=== PATIENT | female | born 1995 | race Caucasian/White ===

== ENCOUNTER 2016-04-15 16:10 | Emergency (ER) | payer BC ==
[~2016-04-15] VITALS: Ht 160 cm; Wt 74.3 kg
[2016-04-15 16:28] VITALS: TEMP 36.9; Ht 160 cm; Wt 74.3 kg
[2016-04-15] MEDS ORDERED: SODIUM CHLORIDE 0.9% 1000ML 1,000 ML IV ONE (18:15)
[2016-04-15 19:30] LABS: URINE APPEARANCE CLOUDY (CLEAR); URINE BILIRUBIN NEG (NEG); URINE COLOR YELLOW; URINE EPITHELIAL CELL AUTO >30 /lpf (0-5); URINE NITRITE NEG (NEG); URINE PH 5.5 (4.5-7.5); URINE SPECIFIC GRAVITY 1.027 (1.000-1.030); UROBILINOGEN NEG (NEG)
[2016-04-15 19:33] LABS: MANUAL MICROSCOPIC REQUIRED? NO; REVIEW REQ? YES; ZZUR CULT IF INDIC CLEAN CATCH YES
[2016-04-15 19:40] LABS: BASO % 0.4 %; BASO ABS # 0.03 K/uL (0-0.2); COMPLETE YES; EOS % 2.4 %; HEMATOCRIT 41.5 % (37-47); IG% 0.1 %; LYMPH % 36.7 %; MEAN CELL VOLUME 88.3 fL (80-100); MEAN CORPUSCULAR HEMOGLOBIN 32.8 pg (25-34); MEAN CORPUSCULAR HGB CONC 37.1 g/dl (32-36); MEAN PLATELET VOLUME 9.8 fL (7.4-10.4); MONO % 8.5 %; NEUT % 51.9 %; PLATELET COUNT 299 K/uL (130-400); WHITE BLOOD COUNT 7.63 K/uL (4.8-10.8)
[2016-04-15] MEDS ORDERED: MONT1TAB3 PO (19:44)
[2016-04-15] MEDS ORDERED: LEVA45AE INH (19:44)
[2016-04-15] MEDS ORDERED: CLON0.5T3 PO (19:44)
[2016-04-15] MEDS ORDERED: VENL150C PO (19:44)
[2016-04-15] MEDS ORDERED: MOME1AER5 INH (19:44)
[2016-04-15 19:51] LABS: URINE MUCUS PRESENT (NONE PRSENT)
[2016-04-15 19:55] LABS: CALCIUM 9.4 mg/dl (8.5-10.1); CREATININE 0.88 mg/dl (0.60-1.20); MAGNESIUM 2.4 mg/dl (1.8-2.4); POTASSIUM 3.8 mmol/L (3.5-5.1)
[2016-04-15 20:02] LABS: BENZODIAZEPINE, URINE NEG (NEG); COCAINE,URINE NEG (NEG); PHENCYCLIDINE, URINE NEG (NEG)
[2016-04-15 20:05] LABS: ALB/GLOB RATIO 1.2 (0.9-2); THYROID STIMULATING HORMONE 2.41 uIu/ml (0.300-4.500)
--- NOTE | 2016-04-15 20:32 | DIAGNOSTIC IMAGING REPORT ---
CT HEAD WITHOUT CONTRAST (CT) CLINICAL HISTORY: Dizziness and vertigo COMPARISON STUDY: No previous studies for comparison. TECHNIQUE: Axial CT of the brain is performed from the vertex to the skull base. IV contrast was not administered for this examination. CT DOSE: 537.48 mGy.cm FINDINGS: No intra or extra-axial mass lesions are visualized. There is no CT evidence of acute cortical infarction. There is no evidence of midline shift. There is no acute hemorrhage. No calvarial fractures are visualized. There is no evidence of pathologic ventricular dilatation. There is an incidental cavum septum pellucidum. There is no evidence of acute sinusitis IMPRESSION: Normal noncontrast head CT. Electronically signed by: Javier Garcia M.D. 04/15/2016 8:30 PM Dictated Date/Time: 04/15/2016 8:29 PM
[2016-04-15 21:51] VITALS: BP 150/83; PULSE 103; O2SAT 100
--- NOTE | 2016-04-16 16:37 | EMERGENCY ROOM VISIT NOTE ---
History First contact with patient: 17:52 Chief Complaint: DIZZY Stated Complaint: DIZZINESS,NAUSEA,SHAKINESS, S SENT HER Nursing Triage Summary: Patient ambulatory to triage, states "I have been really dizzy off and on for 3-4 weeks. It comes in periods of a couple days and then stops. I feel dizzy, nauseated and shaky. When I am dizzy I can't focus and I feel confused." History of Present Illness The patient is a 21 year old female who presents to the Emergency Room with complaints of intermittent dizziness off and on for the past 4 weeks. The patient states that at times she will feel like the room is spinning, and she becomes nauseated and shaky. The patient also feels like she has had near syncopal episodes. She does not report symptoms such as chest pain, chest tightness, palpitations, numbness, or flushing before or after these events. She does have medication for asthma and anxiety/depression which have been stable for several months. The patient went to [facility] today , and she was referred to the ER for further evaluation. The patient does have a history of recent travel, and she flew to [place] to see [employer] play in the [place]. She does not have extremity swelling or history of DVT/PE. Review of Systems More than 10 systems were reviewed and otherwise negative with the exception of history of present illness. Past Medical/Surgical History History of anxiety, depression, asthma Family History No pertinent family history Social History Smoking Status: Never Smoker Occupation Status: [employer] student Current/Historical Medications Scheduled Mometasone Furoate (Inhalation (Asmanex Hfa), 2 PUFF INH DAILY Montelukast Sodium (Singulair), 10 MG PO DAILY Venlafaxine Hcl (Effexor Xr), 1 CAP PO DAILY Miscellaneous Medications Clonazepam (Klonopin), 0.5 MG PO Levalbuterol Tartrate (Levalbuterol Tartrate Hfa), 2 PUFFS INH Allergies Coded Allergies: No Known Allergies (Unverified , 04/15/16) Physical Exam Vital Signs Date Time Temp Pulse Resp B/P Pulse Ox O2 Delivery O2 Flow Rate FiO2 04/15/16 21:51 103 18 150/83 100 04/15/16 20:20 100 20 140/87 98 Room Air 04/15/16 18:42 123 04/15/16 18:38 114 144/88 115 139/80 121 117/53 04/15/16 18:38 130 26 144/88 100 Room Air 04/15/16 16:28 36.9 81 18 117/82 99 Room Air Pain Rating (0-10): 3.0 Physical Exam VITALS: Vitals are noted on the nurse's note and reviewed by myself. Vital signs stable. GENERAL: Well-developed, well-nourished, white female, who is in no acute distress and resting comfortably. Patient is cooperative with the examination. HEAD: Normocephalic atraumatic. EARS: External ear normal. External auditory canals clear, tympanic membranes pearly olson without erythema or effusion bilaterally. EYES: Pupils equal round and reactive to light and accommodation. Conjunctivae without injection, sclerae without icterus. Extraocular movements intact. NOSE: Patent, turbinates without inflammation or discharge. MOUTH: Mucous membranes moist. Tonsils are not enlarged. Pharynx without erythema, blood, or exudate. Uvula midline. Airway patent. NECK: Supple without nuchal rigidity. No lymphadenopathy. No thyromegaly. Cervical spine is nontender. HEART: Regular rate and rhythm without murmurs gallops or rubs. LUNGS: Clear to auscultation bilaterally without wheezes, rales or rhonchi. No retractions or accessory muscle use. ABDOMEN: Positive normal bowel sounds x 4. Soft, nontender, without masses or organomegaly. No guarding or rebound tenderness. MUSCULOSKELETAL: No muscle atrophy, erythema, or edema noted. Full range of motion without joint tenderness in all extremities. No tenderness to palpation. Normal gait. Strength 5/5 throughout. NEURO: Patient was alert and oriented to person place and time. CN II through XII grossly intact. Medical Decision & Procedures ER Provider Diagnostic Interpretation: CT HEAD WITHOUT CONTRAST (CT) CLINICAL HISTORY: Dizziness and vertigo COMPARISON STUDY: No previous studies for comparison. TECHNIQUE: Axial CT of the brain is performed from the vertex to the skull base. IV contrast was not administered for this examination. CT DOSE: 537.48 mGy.cm FINDINGS: No intra or extra-axial mass lesions are visualized. There is no CT evidence of acute cortical infarction. There is no evidence of midline shift. There is no acute hemorrhage. No calvarial fractures are visualized. There is no evidence of pathologic ventricular dilatation. There is an incidental cavum septum pellucidum. There is no evidence of acute sinusitis IMPRESSION: Normal noncontrast head CT. Laboratory Results 04/15/16 19:21 Red Blood Count 4.70, Mean Corpuscular Volume 88.3, Mean Corpuscular Hemoglobin 32.8, Mean Corpuscular Hemoglobin Concent 37.1, Mean Platelet Volume 9.8, Neutrophils (%) (Auto) 51.9, Lymphocytes (%) (Auto) 36.7, Monocytes (%) (Auto) 8.5, Eosinophils (%) (Auto) 2.4, Basophils (%) (Auto) 0.4, Neutrophils # (Auto) 3.96, Lymphocytes # (Auto) 2.80, Monocytes # (Auto) 0.65, Eosinophils # (Auto) 0.18, Basophils # (Auto) 0.03 04/15/16 19:21 Test 04/15/16 19:00 04/15/16 19:21 04/15/16 19:22 Urine Color YELLOW Urine Appearance CLOUDY (CLEAR) Urine pH 5.5 (4.5-7.5) Urine Specific [place] 1.027 (1.000-1.030) Urine Protein NEG (NEG) Urine Glucose (UA) NEG (NEG) Urine Ketones TRACE (NEG) Urine Occult Blood 3+ (NEG) Urine Nitrite NEG (NEG) Urine Bilirubin NEG (NEG) Urine Urobilinogen NEG (NEG) Urine Leukocyte Esterase NEG (NEG) Urine WBC (Auto) 1-5 /hpf (0-5) Urine RBC (Auto) 10-30 /hpf (0-4) Urine Hyaline Casts (Auto) /lpf (0-5) Urine Epithelial Cells (Auto) >30 /lpf (0-5) Urine Bacteria (Auto) 2+ (NEG) Urine Mucus PRESENT (NONE PRSENT) Urine Yeast (Auto) (NONE PRSENT) Urine Test NEG (NEG) Urine Opiates Screen NEG (NEG) Urine Methadone, Qualitative NEG (NEG) Urine Barbiturates NEG (NEG) Urine Phencyclidine (PCP) Level NEG (NEG) Ur Amphetamine/Methamphetamine NEG (NEG) MDMA (Ecstasy) Screen NEG (NEG) Urine Benzodiazepines Screen NEG (NEG) Urine Cocaine Metabolite NEG (NEG) Urine Marijuana (THC) NEG (NEG) White Blood Count 7.63 K/uL (4.8-10.8) Red Blood Count 4.70 M/uL (4.2-5.4) Hemoglobin 15.4 g/dL (12.0-16.0) Hematocrit 41.5 % (37-47) Mean Corpuscular Volume 88.3 fL (80-100) Mean Corpuscular Hemoglobin 32.8 pg (25-34) Mean Corpuscular Hemoglobin Concent 37.1 g/dl (32-36) Platelet Count 299 K/uL (130-400) Mean Platelet Volume 9.8 fL (7.4-10.4) Neutrophils (%) (Auto) 51.9 % Lymphocytes (%) (Auto) 36.7 % Monocytes (%) (Auto) 8.5 % Eosinophils (%) (Auto) 2.4 % Basophils (%) (Auto) 0.4 % Neutrophils # (Auto) 3.96 K/uL (1.4-6.5) Lymphocytes # (Auto) 2.80 K/uL (1.2-3.4) Monocytes # (Auto) 0.65 K/uL (0.11-0.59) Eosinophils # (Auto) 0.18 K/uL (0-0.5) Basophils # (Auto) 0.03 K/uL (0-0.2) RDW Standard Deviation 38.9 fL (36.4-46.3) RDW Coefficient of Variation 12.2 % (11.5-14.5) Immature Granulocyte % (Auto) 0.1 % Immature Granulocyte # (Auto) 0.01 K/uL (0.00-0.02) Anion Gap 11.0 mmol/L (3-11) Est Creatinine Clear Calc Drug Dose 98.4 ml/min Estimated GFR () 109.6 Estimated GFR (Non- 94.6 BUN/Creatinine Ratio 23.0 (10-20) Calcium Level 9.4 mg/dl (8.5-10.1) Magnesium Level 2.4 mg/dl (1.8-2.4) Total Bilirubin 0.3 mg/dl (0.2-1) Aspartate Amino Transf (AST/SGOT) 13 U/L (15-37) Alanine Aminotransferase (ALT/SGPT) 23 U/L (12-78) Alkaline Phosphatase 69 U/L (45-117) Total Protein 8.2 gm/dl (6.4-8.2) Albumin 4.4 gm/dl (3.4-5.0) Globulin 3.8 gm/dl (2.5-4.0) Albumin/Globulin Ratio 1.2 (0.9-2) Thyroid Stimulating Hormone (TSH) 2.410 uIu/ml (0.300-4.500) Bedside D-Dimer 230 ng/mlFEU (0-450) Bedside Troponin I 0.000 ng/ml (0-0.045) Medications Administered Medications (Trade) Dose Ordered Sig/Donis Route Start Time Stop Time Status Last Admin Dose Admin Sodium Chloride (Nss 1000ml) 1,000 ml @ 999 mls/hr Q1H1M ONCE IV 04/15/16 18:15 04/15/16 19:35 DC 04/15/16 19:35 999 MLS/HR ED Course Physical exam and history were performed. Nursing notes and EMR were reviewed. Patient appears to have episodes of dizziness and lightheadedness for the past several weeks. She does not appear toxic on examination. Her vital signs are stable. IV access was established and labs were obtained. EKG was normal sinus rhythm without evidence of ischemia or ectopy. Patient was hydrated with normal saline. The patient's blood work is as above and was reviewed. She does not have a significantly elevated white blood cell count, anemia, bandemia, or gross electrolyte imbalance. Troponin and d-dimer are both negative. TSH is within expected limits. Urine was without signs of UTI. Drug of abuse screen was also negative. As the patient has had a normal workup to this point I did elect to perform a CT scan of her head. CT scan does not show acute findings. Overall the patient's emergency evaluation does not appear to show an acute cardiopulmonary etiology for her symptoms. She is without neurologic deficit and her CT is normal. I feel the patient is stable for discharge home. Her symptoms may be related to vertigo, mild dehydration, viral infection, or other etiology. I do recommend the patient follow with [facility] in the next 2-3 days for recheck of her condition. She was otherwise invited back to the ER with any new, worsening, or concerning symptoms. The chart was completed utilizing [employer] Software. Grammatical errors, random word insertions, pronoun errors, and incomplete sentences are an occasional consequence of this system due to software limitations, ambient noise, and hardware issues. Any formal questions or concerns about the content, text, or information contained within the body of this dictation should be directly addressed to the provider for clarification. . Medical Decision Differential diagnosis: Etiologies such as benign positional vertigo, dehydration, hypovolemia, anemia, tumor, infection, hypoglycemia, electrolyte abnormalities, cardiac sources, intracerebral event, toxicologic, neurologic, as well as others were entertained. Impression Primary Impression: Intermittent lightheadedness Additional Impression: Dizziness Departure Information Dispostion Home / Self-Care Condition [employer] HOME CARE DOCUMENTATION FORM, IMPORTANT VISIT INFORMATION Patient Instructions My [facility] Additional Instructions You were seen and evaluated today on an emergency basis only. This is not a substitute for, or an effort to provide, complete comprehensive medical care. It is not possible to recognize and treat all injuries or illnesses in a single emergency department visit. For this reason it is recommended that you followup with [facility] next week for ongoing care and evaluation. Continue your current medications. You are welcome to return to the emergency department anytime with new, worsening, or concerning symptoms. Problem Qualifiers
== END 2016-04-15 21:51 | disposition home or self-care (01) ==
LOC: C.EDB 16:11
DX: R42 Dizziness and giddiness (principal); J45.909 Unspecified asthma, uncomplicated; F41.9 Anxiety disorder, unspecified; F32.9 Major depressive disorder, single episode, unspecified